=== PATIENT | male | born 1950 | race Caucasian/White ===

== ENCOUNTER 2021-09-07 08:58 | Day surgery (SDC) | payer MEDICARE, BC ==
[~2021-09-07] VITALS: Ht 182.9 cm; Wt 87.7 kg
[~2021-09-07 08:58] MED LIST: BIAXIN PO; CRESTOR10 MG PO; GENTAMICIN180 MG/501 NS
[2021-09-07] MEDS ORDERED: ALEVE 220MG220 MG PO (10:35)
[2021-09-07] MEDS ORDERED: ZYLOPRIM 100MG100 MG PO (10:35)
[2021-09-07] MEDS ORDERED: SLO-NIACIN500 MG PO (10:36)
[2021-09-07] MEDS ORDERED: CRESTOR5 MG PO (10:36)
[2021-09-07] MEDS ORDERED: ASPIRIN E.C. 8181 MG PO (10:36)
[2021-09-07] MEDS ORDERED: FLOMAX 0.40.4 MG/CAP PO (10:37)
[2021-09-07] MEDS ORDERED: ARICEPT ODT5 MG PO (10:37)
[2021-09-07] MEDS ORDERED: VITAMIN B12 781 TAB PO (10:37)
[2021-09-07] MEDS ORDERED: PRINIVIL20 MG PO (10:38)
[2021-09-07] MEDS ORDERED: CVS SPECTRAVIT1 EA15 PO (10:38)
[2021-09-07 10:39] VITALS: BP 131/72; PULSE 70; TEMP 97.6
[2021-09-07 11:15] VITALS: BP 119/67; PULSE 67; TEMP 97.3
--- NOTE | 2021-09-07 11:15 | NUR ---
PATIENT ARRIVES TO ROOM 2 VIA CART. ASSIST TO CHAIR X 1. PATIENT REQUESTS BLUEBERRY MUFFIN AND ORANGE JUICE. VITAL SIGNS WNL. AT BEDSIDE. WAITING FOR DOCTOR TO SPEAK WITH PATIENT. WILL CONTINUE TO MONITOR.
[2021-09-07 11:30] VITALS: BP 129/70; PULSE 83
--- NOTE | 2021-09-07 11:30 | NUR ---
PATIENT IS ALERT AND ORIENTED. VITAL SIGNS WNL. WAITING FOR DOCTOR TO SPEAK WITH PATIENT. IV REMOVED. HE TOLERATED HIS MUFFIN AND ORANGE JUICE WELL. DENIES ANY NAUSEA OR PAIN. WILL CONTINUE TO MONITOR.
[2021-09-07 11:45] VITALS: BP 132/72; PULSE 85
--- NOTE | 2021-09-07 11:45 | NUR ---
PATIENT IS READY FOR DISCHARGE. WAITING FOR DOCTOR TO COME SPEAK WITH HIM. LAST SET OF VITALS WNL. HE IS GETTING DRESSED AND WILL BE DISCHARGED ONCE DOCTOR SPEAKS WITH HIM.
== END 2021-09-07 12:12 | disposition home or self-care (01) ==
LOC: SDCO 08:58
DX: D12.0 Benign neoplasm of cecum (principal); D12.4 Benign neoplasm of descending colon; K57.32 Diverticulitis of large intestine without perforation or abscess without bleeding; D50.9 Iron deficiency anemia, unspecified; E78.5 Hyperlipidemia, unspecified; K92.1 Melena; K29.30 Chronic superficial gastritis without bleeding; Z79.82 Long term (current) use of aspirin
CPT/HCPCS: J2704; J7120

== ENCOUNTER → 2021-10-18 | Outpatient (CLI) | payer MEDICARE, BC ==
[~2021-10-18] MED LIST changes: +ALEVE 220MG220 MG PO; +ARICEPT ODT5 MG PO; +ASPIRIN E.C. 8181 MG PO; +CRESTOR5 MG PO; +CVS SPECTRAVIT1 EA15 PO; +FLOMAX 0.40.4 MG/CAP PO; +PRINIVIL20 MG PO; +SLO-NIACIN500 MG PO; +VITAMIN B12 781 TAB PO; +ZYLOPRIM 100MG100 MG PO
== END ==
LOC: COL.RAD 10-11 07:15
DX: R19.8 Other specified symptoms and signs involving the digestive system and abdomen (principal); R63.0 Anorexia
CPT/HCPCS: A9541